=== PATIENT | female | born 1985 | race Caucasian/White ===

== ENCOUNTER 2017-11-25 06:00 | Inpatient (IN) | payer MEDICAID ==
[2017-11-25] MEDS ORDERED: LACTATED RINGER'S 1,000 ML IV (06:36)
[2017-11-25] MEDS ORDERED: MISOPROSTOL 200 MCG TAB PR ×3 (07:00→22:00)
[2017-11-25] MEDS ORDERED: LIDOCAINE 1% (MPF) 30 ML INJ INJ (07:00)
[2017-11-25] MEDS ORDERED: CARBOPROST 250 MCG INJ IM ×3 (07:00→22:00)
[2017-11-25] MEDS ORDERED: BUTORPHANOL 2 MG INJ IV (07:00)
[2017-11-25] MEDS ORDERED: METHYLERGONOVINE 0.2 MG INJ IM ×3 (07:00→22:00)
[2017-11-25] MEDS ORDERED: OXYTOCIN 30 UNITS/LR 500 ML IV ×4 (07:00→22:00)
[2017-11-25] MEDS: LACTATED RINGER'S 1,000 ML IV ×2 (07:03→15:11)
[2017-11-25 07:28] LABS: ADD MAN DIFF? NO
[2017-11-25 07:39] LABS: BASOPHILS % 0.4 % (0.0-2.0); EOSINOPHILS # 0.1 10^3/ul (0.0-0.5); EOSINOPHILS % 1.1 % (0.0-7.0); HEMATOCRIT 34.2 % (37.0-47.0); HEMOGLOBIN 11.6 g/dl (12.0-16.0); LYMPHOCYTES # 1.2 10^3/ul (0.8-2.9); LYMPHOCYTES % 21.3 % (15.0-51.0); MEAN CORPUSCULAR HEMOGLOBIN 29.4 pg (29.0-33.0); MEAN CORPUSCULAR HGB CONC 33.9 g/dl (32.0-37.0); MEAN CORPUSCULAR VOLUME 86.8 fl (82.0-101.0); MEAN PLATELET VOLUME 10.7 fl (7.4-10.4); MONOCYTE # 0.3 10^3/ul (0.3-0.9); MONOCYTES % 5.7 % (0.0-11.0); NEUTROPHIL # 3.9 10^3/ul (1.6-7.5); NEUTROPHILS % 70.6 % (39.0-77.0); PLATELET COUNT 186 10^3/UL (140-415); RED BLOOD COUNT 3.94 10^6/ul (4.20-5.40); RED CELL DISTRIBUTION WIDTH 14.2 % (11.5-14.5)
[2017-11-25 07:39] LABS: WHITE BLOOD COUNT 5.5 10^3/ul (4.8-10.8)
[2017-11-25 07:58] LABS: INR 0.98; PROTIME 13.1 Sec (11.9-14.9)
[2017-11-25 07:59] LABS: PARTIAL THROMBOPLASTIN TIME 30.1 Sec (25.0-35.0)
[2017-11-25] MEDS: OXYTOCIN 30 UNITS/LR 500 ML IV ×4 (08:08→23:52)
[2017-11-25] MEDS: AMPICILLIN 2 GM/NS (PMX) 100 ML IVPB (08:16)
[2017-11-25 08:24] LABS: HEPATITIS B SURFACE ANTIGEN NEGATIVE (NEGATIVE)
[2017-11-25] MEDS: AMPICILLIN 1 GM/NS (PMX) 50 ML IVPB ×3 (09:00→17:15)
[2017-11-25 14:56] LABS: RAPID PLASMA REAGIN NONREACTIVE (NR)
[2017-11-25] MEDS: MINERAL OIL LIGHT 10 ML VIAL TOP (20:00)
[2017-11-25] MEDS: IBUPROFEN 600 MG TAB PO (20:41)
[2017-11-25] MEDS ORDERED: LACTATED RINGER'S 1,000 ML IV* ×2 (21:37→21:47)
[2017-11-25] MEDS ORDERED: DIBUCAINE 1% 30 GM OINT PR (22:00)
[2017-11-25] MEDS ORDERED: LANOLIN 7 GM TUBE TOP (22:00)
[2017-11-25] MEDS ORDERED: SENNA/DOCUSATE NA (8.6MG/50MG) TAB PO (22:00)
[2017-11-25] MEDS ORDERED: ONDANSETRON 4 MG INJ IV ×2 (22:00)
[2017-11-25] MEDS ORDERED: WITCH HAZEL/GLYCERIN PAD PR ×2 (22:00)
[2017-11-25] MEDS ORDERED: MAGNESIUM HYDROXIDE 30ML CUP PO ×2 (22:00)
[2017-11-25] MEDS ORDERED: ACETAMINOPHEN 325 MG TAB PO ×4 (22:00)
[2017-11-25] MEDS ORDERED: IBUPROFEN 600 MG TAB PO (22:00)
[2017-11-25] MEDS ORDERED: BENZOCAINE 20% 56 ML SPRAY TOP (22:00)
[2017-11-25] MEDS: LANOLIN 7 GM TUBE TOP (23:28)
[2017-11-25] MEDS: BENZOCAINE 20% 56 ML SPRAY TOP (23:28)
[2017-11-26] MEDS: IBUPROFEN 600 MG TAB PO ×2 (04:13→19:41)
[2017-11-26 08:27] LABS: ADD MAN DIFF? NO
[2017-11-26 08:31] LABS: BASOPHILS % 0.2 % (0.0-2.0); EOSINOPHILS # 0.1 10^3/ul (0.0-0.5); EOSINOPHILS % 0.4 % (0.0-7.0); HEMATOCRIT 34.7 % (37.0-47.0); HEMOGLOBIN 11.7 g/dl (12.0-16.0); LYMPHOCYTES # 1.4 10^3/ul (0.8-2.9); LYMPHOCYTES % 10.4 % (15.0-51.0); MEAN CORPUSCULAR HEMOGLOBIN 29.4 pg (29.0-33.0); MEAN CORPUSCULAR HGB CONC 33.7 g/dl (32.0-37.0); MEAN CORPUSCULAR VOLUME 87.2 fl (82.0-101.0); MEAN PLATELET VOLUME 10.9 fl (7.4-10.4); MONOCYTES % 7.1 % (0.0-11.0); NEUTROPHIL # 11.1 10^3/ul (1.6-7.5); NEUTROPHILS % 81.2 % (39.0-77.0); PLATELET COUNT 201 10^3/UL (140-415); RED BLOOD COUNT 3.98 10^6/ul (4.20-5.40); RED CELL DISTRIBUTION WIDTH 13.8 % (11.5-14.5)
[2017-11-26 08:31] LABS: WHITE BLOOD COUNT 13.6 10^3/ul (4.8-10.8)
[2017-11-26] MEDS: SENNA/DOCUSATE NA (8.6MG/50MG) TAB PO ×2 (09:25→21:14)
[2017-11-27] MEDS: IBUPROFEN 600 MG TAB PO (04:02)
[2017-11-27] MEDS: DIBUCAINE 1% 30 GM OINT PR (11:11)
== END 2017-11-27 12:00 | disposition home or self-care (01) | DRG 775 ==
LOC: L-D 06:00 → PP1 21:43
PROVIDERS: Obstetrics & Gynecology
PROC: 10E0XZZ Delivery of Products of Conception, External Approach (ICD-10-PCS; principal; 2017-11-25)
DX: O80 Encounter for full-term uncomplicated delivery (principal); Z3A.40 40 weeks gestation of pregnancy; Z37.0 Single live birth
CPT/HCPCS: 76815; 85025; 85610; 85730; 86592; 86850; 86900; 86901; 87340; 99464